=== PATIENT | male | born 1940 | race Caucasian/White ===

== ENCOUNTER → 2017-04-04 | Outpatient (CLI) | payer MEDICARE, BC ==
[2014-05-03 10:15] VITALS: BP 135/76
[~2017-04-04] MED LIST: ATOR20TA PO; DOXY100C2 PO; HYDR-2766 PO; PPI; ZOLP10TA4 PO
--- NOTE | 2017-04-04 15:42 | KCIC ---
CT chest without contrast History: Lung nodules.. Technique: No intravenous contrast per request. Multiplanar reformatted images were obtained. Comparison: April 01, 2016. Exposure: One or more of the following individualized dose reduction techniques were utilized for this examination: 1. Automated exposure control 2. Adjustment of the mA and/or kV according to patient size 3. Use of iterative reconstruction technique. Findings: Vascular structures: Limited exam without contrast. Atheromatous calcifications. No aneurysm. Lymph nodes: There has been development of mild mediastinal lymph node enlargement since the prior study. Several small lymph nodes anterior to the left brachiocephalic vein, largest measures 6 mm x 12 mm. Several small pretracheal lymph nodes are unchanged. Thyroid gland:Visualized aspect is unremarkable. Heart: Coronary artery calcifications. Pleural spaces: No significant effusion Lungs: Small right upper lobe nodule anteriorly, image 33, measures 4 mm and is stable. Subpleural nodule in the right middle lobe anteriorly, image 49, measures 6 mm and is unchanged. Smaller right middle lobe nodule is unchanged, image 47. Small subpleural right lower lobe pulmonary nodule on image 34 is unchanged. Mild linear fibrosis or atelectasis in both lung bases. Trachea and central airways: Patent Bones: No destructive process Upper abdomen: Slices obtained through the upper most abdomen are limited by the noncontrast technique. There may be a lesion in the upper pole of the left kidney, barely visualized, such as a cyst. Spinal stimulator leads are noted. Degenerative changes of the spine. Impression: 1. Multiple pulmonary nodules are unchanged. 2. Development of a couple of mildly enlarged superior mediastinal lymph nodes, largest measures 6 mm x 12 mm. These are of uncertain etiology, recommend continued follow-up. 3. Possible left upper pole renal lesion, barely visualized. Consider renal ultrasound for further exam. Electronically signed by: Javier Davenport MD (04/04/2017 3:38 PM) [id number]
== END | disposition home or self-care (01) ==
LOC: KCIC CT 14:52
PROVIDERS: ATTEND Internal Medicine Pulmonary Disease
DX: R91.8 Other nonspecific abnormal finding of lung field (principal); R59.9 Enlarged lymph nodes, unspecified
CPT/HCPCS: 71250

== ENCOUNTER → 2017-04-11 | Outpatient (CLI) | payer MEDICARE, BC ==
[2014-05-03 10:15] VITALS: BP 135/76
--- NOTE | 2017-04-11 15:10 | KCIC ---
EXAM: Renal sonogram. HISTORY: Left renal lesion. TECHNIQUE: Sonographic imaging of the kidneys and bladder was performed. COMPARISON: CT dated 04/04/2017. FINDINGS: The right kidney measures 11.5 cm [id number] and the left kidney measures 11.3 cm [id number]. There are simple appearing cyst within both kidneys, measuring 1.1 cm within the anterior right kidney and 1.0 cm within the superior left kidney. No solid renal lesion is seen. There is no hydronephrosis. There is evidence of a neobladder status post bladder resection for bladder cancer. IMPRESSION: 1. Small renal cysts. 2. Abnormal urinary bladder configuration due to a neobladder status post bladder resection. Electronically signed by: Thalia Agrawal MD (04/11/2017 3:07 PM) [id number]
== END | disposition home or self-care (01) ==
LOC: KCIC US 14:06
PROVIDERS: ATTEND Internal Medicine Pulmonary Disease
DX: N28.1 Cyst of kidney, acquired (principal); Z85.9 Personal history of malignant neoplasm, unspecified
CPT/HCPCS: 76770

== ENCOUNTER → 2017-08-16 | Outpatient (CLI) | payer MEDICARE, BC ==
[2017-08-16 13:05] LABS: ISTAT CREATININE 1.1 mg/dL (0.7-1.3)
[2017-08-16] MEDS: IOHEXOL 300 MG/ML 100ML VIAL. IV (13:06)
[2017-08-16] MEDS: IOHEXOL 240 MG/ML 50ML VIAL. PO (13:06)
== END | disposition home or self-care (01) ==
LOC: KCIC CT 11:45
DX: C67.9 Malignant neoplasm of bladder, unspecified (principal); I70.0 Atherosclerosis of aorta; M47.896 Other spondylosis, lumbar region; E78.5 Hyperlipidemia, unspecified; K92.1 Melena; R91.8 Other nonspecific abnormal finding of lung field; R59.0 Localized enlarged lymph nodes
CPT/HCPCS: 71260; 74177; 82565; Q9966; Q9967